=== PATIENT | male | born 1965 | race Caucasian/White ===

== ENCOUNTER → 2021-05-16 15:12 | Outpatient (CLI) | payer BC, SELFPAY ==
--- NOTE | ~2021-05-16 | CT_ITS ---
EXAMINATION: CT soft tissue neck w con DATE: 05/16/2021 15:52 INDICATION: Localized enlarged lymph nodes. Anterior cervical lymphadenopathy. TECHNIQUE: Computed tomography (CT) of the neck was performed with 75 mL Omnipaque-350 intravenous co ntrast. Automated exposure control and iterative reconstruction technique were employed. The dose-iron gth product was 467.49 mGy-cm. COMPARISON: None FINDINGS: There are no pathologically enlarged lymph nodes. There is plaque in the proximal internal carotid arteries with 0% stenosis relative to normal distal artery lumen diameters. There is a 2.0 cm sialolith in right submandibular gland. There is a 2.0 x 0.6 cm sialolith in left floor of mouth. Th ere is severe cervical spondylosis. 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 IMPRESSION: 1. Sialoliths in the right subarticular gland and left floor of mouth. 2. No lymphadenopathy. Reviewed, dictated and finalized at location A. E SEINER
[2021-05-16 15:42] LABS: Estimated Glomerular Filt Rate > 60
== END ==
PROVIDERS: PCP Family Medicine; Visit Provider Physician Assistant Medical
DX: R59.0 Localized enlarged lymph nodes (principal); M47.812 Spondylosis without myelopathy or radiculopathy, cervical region
CPT/HCPCS: 70491; Q9967

== ENCOUNTER → 2021-07-13 09:23 | Outpatient (CLI) | payer BC, SELFPAY ==
--- NOTE | ~2021-07-13 | CT_ITS ---
EXAMINATION: CT wrist LT wo con DATE: 07/13/2021 09:45 INDICATION: Arthritis of the left wrist presenting with left wrist pain TECHNIQUE: High resolution computed tomography (CT) of the left wrist was performed without intraveno us contrast. Additional sagittal and coronal reconstructions were performed. Automated exposure contr ol and iterative reconstruction technique were employed. The dose-length product was 104.07 mGy-cm. COMPARISON: 01/25/2017 FINDINGS: Postoperative change of interval resection of the scaphoid with few residual small bone fragments at the resection bed. There is also been a 4 corner carpal arthrodesis of the lunate, capitate, hamate a nd triquetrum with solid osseous fusion and with dorsal sided staple fixation. No fractures identifie d. Polyarticular osteoarthritis, moderate severity at the first carpometacarpal and first metacarpoph alangeal joints and mild at the distal radioulnar and remaining carpal metacarpal and metacarpophalan geal joints. IMPRESSION: 1. Postoperative changes of a now solidly fused and internally fixed 4 corner carpal arthrodesis with associated scaphoid excision. 2. Additional mild to moderate polyarticular osteoarthritis greatest at the first carpometacarpal and metacarpophalangeal joints. Reviewed, dictated and finalized at location A. S SERVICE SUPERVISOR IMPRESSION: 1. Postoperative changes of a now solidly fused and internally fixed 4 corner c arpal arthrodesis with associated scaphoid excision. 2. Additional mild to moderate polyarticular osteoarthritis greatest at the fir st carpometacarpal and metacarpophalangeal joints.
== END ==
PROVIDERS: PCP Family Medicine
DX: M19.032 Primary osteoarthritis, left wrist (principal); M18.12 Unilateral primary osteoarthritis of first carpometacarpal joint, left hand
CPT/HCPCS: 73200

== ENCOUNTER → 2022-01-23 09:45 | Outpatient (CLI) | payer BC, SELFPAY ==
--- NOTE | ~2022-01-23 | CT_ITS ---
EXAMINATION: CT pelvis wo con DATE: 01/23/2022 10:00 INDICATION: Cardiac TECHNIQUE: Computed tomography (CT) of the pelvis was performed without intravenous contrast. Automat ed exposure control and iterative reconstruction technique were employed. Exam dose: 734.39 mGy-cm t otal exam DLP. COMPARISON: None FINDINGS: There is an approximately 1.3 cm deep to 0.2 cm wide fat-containing umbilical hernia. No inguinal hernias are noted. Prostate enlargement and calcifications. The urinary bladder wall appears moderately thickened but th e bladder is evacuated, which may contribute to this appearance. Mild sigmoid colon diverticulosis; n o CT evidence of diverticulitis. No bowel obstruction is evident. No evidence of appendicitis. The distal abdominal aorta is of normal caliber. No pelvic mass lesion or adenopathy or ascites. Severe degenerative disc disease at L5-S1. There is retrolisthesis at L3-4. IMPRESSION: Small fat-containing umbilical hernia Diverticulosis of sigmoid colon Reviewed, dictated and finalized at Location A. Reviewed, dictated and finalized at location B.
== END ==
PROVIDERS: PCP Family Medicine; Visit Provider Surgery
DX: R10.31 Right lower quadrant pain (principal); K42.9 Umbilical hernia without obstruction or gangrene; K57.30 Diverticulosis of large intestine without perforation or abscess without bleeding
CPT/HCPCS: 72192

== ENCOUNTER 2022-04-12 00:54 | Day surgery (SDC) | payer BC, SELFPAY ==
[2022-04-06 10:24] VITALS: BMI 31.4
--- NOTE | 2022-04-06 10:30 | PC.NURSE ---
Report to the Outpatient Waiting Room, entrance under the green pavilion located off [facility], at time 1000 on date 04/12/22. Planned Procedure Time: 1200. Time changes happen often and if your time is changed the preop area will call you the afternoon before. - You and your visitor will be asked to self-screen and do not enter if you have any COVID symptoms. - We encourage only one visitor and NO visitors under age 16 are allowed at this time. Your visitor will receive communication by the phone number that is given day of service. - The patient visitor is requested to social distance or may leave the building when not with patient due to restrictions. - A mask is OPTIONAL within the hospital. Patients may have clear liquids (water, carbonated beverages, clear teas, apple juice) until 3 hours prior to surgery with a maximum of 20 ounces. - No food from midnight until time of surgery Take the following medications with a SIP of water the morning of surgery: NONE Medications to discontinue per physician: N/A Date to take last dose: N/A Please no make-up, nail vietnamese, hairspray, perfume, deodorant, or body powder the day of surgery. No jewelry (including any body piercings) or valuables the day of surgery, leave them at home. Please take a shower or bath the night before, or the morning of, surgery with an antibacterial soap (HIBICLENS). Wear comfortable, loose fitting clothing. - Jewelry must be removed prior to entering the operating room. Rings and piercings that are not removed may be cut off. - The hospital will not accept responsibility for valuables. - Please leave all valuables, including medications, at home the day of surgery. If you are going home after surgery, a licensed drivers license examiner must drive you home. - NO public transportation without another adult. - We recommend that an adult stay with you for 24 hours following discharge. - We also recommend that you do not drive, make important decision, drink alcoholic beverages, or take any drugs that were not prescribed by your health care provider for at least 24 hours after your discharge time. Follow any additional instructions given to you from your surgeon. If you or anyone in your household have experienced Covid symptoms in the past week, please notify your surgeon or the nurse liaison at the phone number below for possible testing. Telephone instructions given to PT - DESI GARCIA and asked if any additional questions and then verbalized understanding. Patient advised to call surgeon office or pre surgery nurse liaison [phone] if any additional questions.
[2022-04-12] VITALS (8 sets, daily range): BP systolic 108–142; BP diastolic 62–88; PULSE 64–76; RESP 12–16; TEMP 36.6–36.9; O2SAT 92–99
--- NOTE | 2022-04-12 07:25 | WPDANESEPPF ---
Anes - Initial Pre Proc Eval Procedure: Operation Date: 04/12/22 12:00 Proposed Procedures p Open Ventral Hernia Repair, Possible Mesh - Vega Mclean DO Date/Time: 04/12/22 07:25 Surgeon: Vega Mclean DO Pre Op Diagnosis: ventral hernia Patient Data Age: 56 Gender: M Height: 1.88 m Weight: 111.13 kg Allergies Allergy/AdvReac Type Severity Reaction Status Date / Time lisinopril AdvReac Mild BRIAN cough Verified 04/12/22 10:14 Sulfa (Sulfonamide AdvReac loopy Verified 04/12/22 10:14 Antibiotics) Home Medications Medication Instructions Recorded Confirmed Type allopurinol 300 mg tablet See Rx Instructions .Route 09/15/21 04/06/22 Rx .COMPLEX #180 tabs metformin 500 mg tablet,extended 500 mg PO DAILY #120 tabs 01/03/22 04/06/22 Rx release 24hr omeprazole 40 mg capsule,delayed 40 mg PO DAILY #90 caps 01/03/22 04/06/22 Rx release cephalexin 500 mg capsule 500 mg PO QID 04/06/22 04/06/22 History Patient hx anesthesia problems: none Family hx anesthesia problems: none Results Review: All pre-operative results and documents have been reviewed as part of the pre-operative evaluation. [facility] Past Medical History Medical History (Updated 04/12/22 @ 07:26 by Pratik Uriarte MD) Amputated toe of right foot Cellulitis of left foot Charcot's arthropathy Class 1 obesity with body mass index (BMI) of 33.0 to 33.9 in adult Diabetes Essential hypertension GERD without esophagitis Normal colonoscopy 9.21.15 intermal hemmies Normal nuclear stress test 04/02/19 Obstructive sleep apnea (adult) (pediatric) Spinal stenosis, lumbar region, with neurogenic claudication Thrombocytopenia Surgical History Surgical History Amputation toe H/O carpal tunnel repair Family History Family History Father Hypertension Heart disease Grandparent Diabetes mellitus Social History Social History Smoking status: Former smoker Alcohol intake: current Drinks per week: 20 Alcohol use details: 0-24/WEEK DEPENDING ON WEEK Substance use: never Substance use type: does not use Living arrangements: with family 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 Informed Consent: The patient's anesthetic plan and its attendant risks and benefits were discussed with the patient/family/POA. Questions were solicited and answers provided to the satisfaction of the patient/family/POA.
[2022-04-12] MEDS: ACETAMINOPHEN 500 MG TABLET 1000 MG PO (10:18)
--- NOTE | 2022-04-12 10:22 | ECG_ITS ---
Measurements Intervals Marcy Rate: 67 P: 0 NM: 164 QRS: -7 QRSD: 117 T: 37 QT: 397 QTc: 421 Interpretive Statements SINUS RHYTHM INCOMPLETE RIGHT BUNDLE BRANCH BLOCK BASELINE ARTIFACT- I, II, III, V5 BORDERLINE ECG NO PREVIOUS ECG AVAILABLE FOR COMPARISON Electronically Signed On 04-12-2022 12:13:10 [employer] by Edgardo Carson D.O.
[2022-04-12 10:32] LABS: Glucose Point of Care 152 mg/dl (65-105)
--- NOTE | 2022-04-12 11:01 | WPDHPUPDATE1 ---
History and Physical Update Update Date/Time: 04/12/22 11:01 History and Physical has been reviewed, including an updated exam of the patient. There are NO changes in the patient's condition. Risks, benefits, and alternatives have been discussed and questions answered. Patient agrees to proceed with procedure.
--- NOTE | 2022-04-12 11:02 | PM.IMHP ---
H&P: HPI History of Present Illness Date/Time: 04/12/22 11:02 Chief Complaint: Ventral hernia Narrative: This is a 56-year-old man who presents with a recently identified ventral hernia just superior to his umbilicus. He was also having some right groin pain and a CT of his pelvis was obtained but no evidence of a right inguinal hernia was seen. He now presents for ventral hernia repair. He reports no changes since last seen in the office. Review of Systems Review of Systems: All systems reviewed & are unremarkable except as noted in HPI and below Constitutional: Constitutional: Denies chills, Denies fever(s), Denies headache(s) and Denies weight loss Eyes: Eyes: Denies change in vision ENT: Denies dizziness, Denies headache(s), Denies neck mass and Denies throat swelling Cardiovascular: Cardiovascular: Denies chest pain, Denies lightheadedness and Denies dyspnea Respiratory: Respiratory: Denies cough, Denies dyspnea and Denies wheezing Gastrointestinal: Gastrointestinal: Denies abdominal pain, Denies change in bowel habits, Denies nausea and Denies vomiting Genitourinary: Genitourinary: Denies hematuria and Denies dysuria Musculoskeletal: Musculoskeletal: Reports as per HPI Integumentary/Breasts: Skin/Breast: Reports as per HPI Neurologic: Denies dizziness and Denies headache(s) Allergic/Immunologic: Allergic/Immunologic: Denies throat swelling and Denies wheezing [facility] Past Medical History Medical History (Updated 04/12/22 @ 07:26 by Pratik Uriarte MD) Amputated toe of right foot Cellulitis of left foot Charcot's arthropathy Class 1 obesity with body mass index (BMI) of 33.0 to 33.9 in adult Diabetes Essential hypertension GERD without esophagitis Normal colonoscopy 9.21.15 intermal hemmies Normal nuclear stress test 04/02/19 Obstructive sleep apnea (adult) (pediatric) Spinal stenosis, lumbar region, with neurogenic claudication Thrombocytopenia Surgical History Surgical History Amputation toe H/O carpal tunnel repair Family History Family History Father Hypertension Heart disease Grandparent Diabetes mellitus Social History Social History Smoking status: Former smoker Alcohol intake: current Drinks per week: 20 Alcohol use details: 0-24/WEEK DEPENDING ON WEEK Substance use: never Substance use type: does not use Living arrangements: with family 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 Gender identity (if verbalized by the patient): Male Spiritual care concerns: No Meds Home Medications and Allergies Home Medications Medication Instructions Recorded Confirmed Type allopurinol 300 mg tablet See Rx Instructions .Route 09/15/21 04/06/22 Rx .COMPLEX #180 tabs metformin 500 mg tablet,extended 500 mg PO DAILY #120 tabs 01/03/22 04/06/22 Rx release 24hr omeprazole 40 mg capsule,delayed 40 mg PO DAILY #90 caps 01/03/22 04/06/22 Rx release cephalexin 500 mg capsule 500 mg PO QID 04/06/22 04/06/22 History Allergies Allergy/AdvReac Type Severity Reaction Status Date / Time lisinopril AdvReac Mild BRIAN cough Verified 04/12/22 10:14 Sulfa (Sulfonamide AdvReac loopy Verified 04/12/22 10:14 Antibiotics) Vital Signs Vital Signs - 24 hr 04/12/22 10:59 Temperature 36.6 C Pulse Rate 76 Respiratory Rate 16 Blood Pressure 142/88 H Pulse Oximetry 99 Oxygen Delivery Room Air Exam Const: General: no acute distress and alert Orientation/consciousness: patient oriented x3 HENMT: Head: normocephalic and atraumatic Ears: hearing grossly normal bilaterally Face/Nose/Sinus: Normal nares present Mouth: Yes Normal oral and palatal mucosa present Eyes: Periorbital: periorbital findings normal Sclera: sclerae normal EOM: EOMs intact bilaterally Neck:
[2022-04-12] MEDS: KETOROLAC 15 MG/ML VIAL (*BKC) IV PUSH (11:08)
[2022-04-12] MEDS: LACTATED RINGERS 1,000 ML 30 ML IV CONT ×2 (11:08→12:54)
[2022-04-12] MEDS: BUPIVACAINE/EPINEPHRINE 0.25% 50 ML VIAL 30 ML INFILTRATE (11:48)
[2022-04-12] MEDS: ceFAZolin 2 GM/D5W 50 ML 2 GM/50 ML BAG IVPB (11:48)
--- NOTE | 2022-04-12 12:47 | P.OP_ITS ---
Procedure Note - Detailed Date of Procedure 04/12/22 Pre-op Diagnosis ventral hernia Post-op Diagnosis Same Procedure Performed Open ventral hernia repair with 6.[address] hernia patch Surgeon Vega Mclean DO Anesthesia General and Local (0.5% bupivacaine with epinephrine) Indications This is a 56-year-old man who presented with a bulge near his umbilicus that had been present for about 5 years. He states that this has gradually increased in size. He denies any significant pain associated with this. He was found to have a ventral periumbilical hernia on exam. Discussions were made the patient about treatment options and decision was made to proceed with ventral hernia repair with possible mesh. Findings Open ventral hernia repair was performed. Patient was noted to have a 1.5 cm hernia located at the superior aspect of the umbilicus. A preperitoneal pocket was created for mesh placement and a 6.[address] hernia patch was placed within the preperitoneal pocket and secured to the fascia using 0 Ethibond [id number] sutures. No specimens were obtained for pathology. Description of Procedure Procedure as well as risks, benefits, and alternatives were discussed with the patient. Written consent was obtained and placed in chart prior to procedure. Patient was brought back to surgical suite. He was placed supine on operating table. He was then intubated by Anesthesia Department. His abdomen was prepped and draped in sterile fashion using chlorhexidine prep. 0.5% bupivacaine with epinephrine was infiltrated locally around the operative area. A 4 cm curvilin ear incision was made just superior to the umbilicus using a 15 blade scalpel. Electrocautery was used for hemostasis and for dissection down through the subcutaneous fat. Hernia sac was encountered and this was carefully freed up from surrounding subcutaneous fat using electrocautery. The hernia sac was freed up all the way down to the level of the fascia. The hernia sac was reduced back into the abdominal cavity. The umbilical stalk was then lifted off of the fascia with electrocautery. The hernia defect was then measured. This was measuring approximately 15 mm. The decision was made to use a 6.[address] hernia patch. The peritoneum was cleared under the fascia circumferentially around the hernia using blunt dissection and electrocautery. Once a wide enough pocket was created for the mesh, the mesh was then placed within this preperitoneal pocket and laid out flat centered on the hernia defect. The mesh appeared to be sitting in proper position. The mesh was then secured to the abdominal wall along with the fascial closure using 0 Ethibond [id number] sutures. A total of 3 sutures were placed transversely to approximate the fascia and secure the mesh. The repair was inspected and appeared secure. 0.5% bupivacaine with epinephrine was infiltrated around the fascia and subcutaneous space. The umbilical stalk was then reapproximated to the fascia using a 3 0 Vicryl simple interrupted suture. The deep dermis was reapproximated using 3 0 Vicryl simple interrupted sutures, and then the skin was approximated using 4 Monocryl running subcuticular suture. Exofin glue was then applied on top. The patient was then awakened from anesthesia, extubated, and transferred to recovery. Implants 6.[address] hernia patch Estimated Blood Loss 5 Complications No immediate complications Condition Stable Disposition Same day [facility] Billing Surgery - Charge Forward: Surgery Billing
[2022-04-12 13:04] LABS: Glucose Point of Care 143 mg/dl (65-105)
--- NOTE | 2022-04-12 13:31 | SUR.PHASEI ---
1330: Simple mask removed.
[2022-04-12] MEDS: oxyCODONE HCL (*CRX) 5 MG TAB IR PO (14:10)
== END 2022-04-12 15:14 | disposition home or self-care (01) ==
PROVIDERS: PCP Family Medicine; Visit Provider Surgery
PROC: 0WQF0ZZ Repair Abdominal Wall, Open Approach (ICD-10-PCS; CPT 49560; principal; 2022-04-12 12:00)
DX: K43.9 Ventral hernia without obstruction or gangrene (principal); I10 Essential (primary) hypertension; K21.9 Gastro-esophageal reflux disease without esophagitis; E11.610 Type 2 diabetes mellitus with diabetic neuropathic arthropathy; G47.33 Obstructive sleep apnea (adult) (pediatric); M48.062 Spinal stenosis, lumbar region with neurogenic claudication; Z79.84 Long term (current) use of oral hypoglycemic drugs; E66.01 Morbid (severe) obesity due to excess calories; Z68.31 Body mass index [BMI] 31.0-31.9, adult; Z87.891 Personal history of nicotine dependence
CPT/HCPCS: 49560; 49568; 82948; 93005; A9270; C1781; J0690; J1100; J1170; J1885; J2250; J2405; J2704; J2710; J3010; J7120

== ENCOUNTER 2024-03-19 10:54 | Outpatient (CLI) | payer BC, SELFPAY ==
[2024-03-19 13:21] LABS: Iron 49 ug/dL (49-181)
[2024-03-19 13:46] LABS: Percent Iron Saturation 27 % (20-50)
[2024-03-19 16:40] LABS: Basophils Percent Auto 0.5 % (0.2-1.2); Eosinophils Absolute Auto 0.2 K/mm3 (0-0.3); Hematocrit 29.8 % (42.0-52.0); Hemoglobin 9.1 g/dL (14.0-18.0); Immature Granulocyte Absolute 0.02 K/mm3 (0.00-0.031); Immature Granulocyte Percent A 0.3 % (0-0.5); Lymphocytes Absolute Auto 1.07 K/mm3 (0.9-3.2); Lymphocytes Percent Auto 17.6 % (18.3-44.2); Mean Corpuscular HGB Conc 30.5 g/dl (32-36); Mean Corpuscular Hemoglobin 25.4 pg (26-34); Mean Corpuscular Volume 83.2 fl (80-100); Mean Platelet Volume 9.9 fl (7.4-10.4); Monocytes Absolute Auto 0.5 K/mm3 (0.1-0.6); Monocytes Percent Auto 8.7 % (2.6-8.5); Neutrophils Absolute Auto 4.3 K/mm3 (1.3-6.7); Neutrophils Percent Auto 69.9 % (45.5-73.1); Platelet Count Result 235 k/mm3 (150-375); Red Blood Count 3.58 M/mm3 (4.6-6.20); Red Cell Distribution Width 14.7 % (11.5-14.5); Reticulocyte Hemoglobin Conten 24.6 pg (28.2-36.6); Reticulocyte Percent 1.42 % (0.7-4.3); Reticulocytes Absolute 0.05 10^6/uL (0.02-0.10); White Blood Count 6.1 K/mm3 (4.5-10.0)
== END 2024-03-19 10:55 | disposition home or self-care (01) ==
LOC: ANHGOSHLAB 10:57
PROVIDERS: PCP Family Medicine; Visit Provider Family Medicine
DX: D64.9 Anemia, unspecified (principal)
CPT/HCPCS: 36415; 82607; 82728; 83540; 83550; 85025; 85046